=== PATIENT | female | born 1945 | race Caucasian/White ===

== ENCOUNTER 2017-03-05 20:15 | Inpatient (IN) | payer MEDICAID ==
[~2017-03-05] VITALS: Ht 152.4 cm; Wt 80.3 kg
[2017-03-05 21:10] LABS: BASOPHIL % 0.5 % (0-2); PLATELET COUNT 234 x10^3mcL (130-400); RED CELL DISTRIBUTION WIDTH 13.1 % (11.5-14.5)
[2017-03-05 21:11] LABS: CALCIUM 9.3 mg/dL (8.5-10.1); CARBON DIOXIDE 30.9 mmol/L (21-32); CHLORIDE SERUM 101 mmol/L (98-107); CREATININE SERUM 0.7 mg/dL (0.6-1.0); GLUCOSE SERUM 123 mg/dL (74-106); SODIUM SERUM 137 mmol/L (136-145)
[2017-03-05 21:15] LABS: ALBUMIN 3.7 g/dL (3.4-5.0); ALKALINE PHOSPHATASE 103 U/L (46-116); ALT/SGPT 22 U/L (14-59); AST/SGOT 17 U/L (15-37); BILIRUBIN TOTAL 0.5 mg/dL (0.20-1.00); TOTAL PROTEIN, SERUM 7.5 g/dL (6.4-8.2)
[2017-03-05 21:49] LABS: UA SPECIFIC GRAVITY <=1.005 (1.005-1.035); microscopic required? YES; urine erythrocyte TRACE (NEGATIVE)
[2017-03-05] MEDS ORDERED: MAPAP500 M2 PO (22:47)
[2017-03-05] MEDS ORDERED: MAPAP EXTRA ST500 M1 PO (22:49)
[2017-03-05] MEDS ORDERED: IBUPROFEN400 MG PO (22:50)
[2017-03-05 22:52] VITALS: Ht 152.4 cm; Wt 80.3 kg
[2017-03-05 23:25] LABS: CHOLESTEROL/HDL RATIO 2.7; MAGNESIUM 1.7 mg/dL (1.8-2.4); PHOSPHOROUS 2.9 mg/dL (2.5-4.9)
[2017-03-05 23:45] LABS: FREE T4 1.04 ng/dL (0.76-1.46); T4(THYROXINE) 9.1 ug/dL (4.7-13.3)
[2017-03-05 23:55] VITALS: BP 123/60
[2017-03-06 00:07] LABS: T3 TOTAL 0.99 ng/mL
[2017-03-06 00:27] VITALS: BP 123/60
[2017-03-06 07:17] VITALS: BP 121/61
[2017-03-06 07:21] LABS: BASOPHIL % 0.3 % (0-2); PLATELET COUNT 220 x10^3mcL (130-400); RED CELL DISTRIBUTION WIDTH 13.1 % (11.5-14.5)
[2017-03-06 07:32] LABS: CALCIUM 8.8 mg/dL (8.5-10.1); CARBON DIOXIDE 26.6 mmol/L (21-32); CHLORIDE SERUM 105 mmol/L (98-107); CREATININE SERUM 0.7 mg/dL (0.6-1.0); GLUCOSE SERUM 114 mg/dL (74-106); MAGNESIUM 2.3 mg/dL (1.8-2.4); POTASSIUM SERUM 3.8 mmol/L (3.5-5.1); SODIUM SERUM 140 mmol/L (136-145)
[2017-03-06 07:33] LABS: ALBUMIN 3.2 g/dL (3.4-5.0)
[2017-03-06 09:41] VITALS: BP 135/70
[2017-03-06 13:40] VITALS: BP 146/64
[2017-03-06 17:50] VITALS: BP 143/58
[2017-03-06 22:34] VITALS: BP 141/67
[2017-03-07 05:56] VITALS: BP 122/59
[2017-03-07 06:12] LABS: BASOPHIL % 0.5 % (0-2); PLATELET COUNT 207 x10^3mcL (130-400); RED CELL DISTRIBUTION WIDTH 13.4 % (11.5-14.5)
[2017-03-07 06:18] LABS: CALCIUM 8.5 mg/dL (8.5-10.1); CARBON DIOXIDE 25.8 mmol/L (21-32); CHLORIDE SERUM 107 mmol/L (98-107); CREATININE SERUM 0.6 mg/dL (0.6-1.0); GLUCOSE SERUM 105 mg/dL (74-106); MAGNESIUM 1.9 mg/dL (1.8-2.4); PHOSPHOROUS 3.4 mg/dL (2.5-4.9); POTASSIUM SERUM 3.4 mmol/L (3.5-5.1); SODIUM SERUM 141 mmol/L (136-145)
[2017-03-07] MEDS ORDERED: MAC100 PO (09:43)
[2017-03-07] MEDS ORDERED: LAC PO (09:45)
[2017-03-07] MEDS ORDERED: ZES10 PO (09:49)
[2017-03-07] MEDS ORDERED: LIPI20 PO (09:49)
[2017-03-07] MEDS ORDERED: ECO81 PO (09:50)
[2017-03-07] MEDS ORDERED: ESGIC CAPSULE1 EACH PO (09:51)
[2017-03-07 10:18] VITALS: BP 125/62
[2017-03-07 11:02] VITALS: BP 125/62
== END 2017-03-07 13:50 | disposition home or self-care (01) | DRG 463 ==
LOC: ED 20:15 → DU 22:46 → MU 22:46 → DU 23:49 → MU 03-06 17:53
PROVIDERS: Emergency Medicine; ADMIT Family Medicine
PROC: 7W0 Osteopathic, Anatomical Regions, Treatment (ICD-10-PCS; principal; 2017-03-06)
PROC: 7W0 Osteopathic, Anatomical Regions, Treatment (ICD-10-PCS; principal; 2017-03-06)
PROC: 7W0 Osteopathic, Anatomical Regions, Treatment (ICD-10-PCS; principal; 2017-03-06)
PROC: 7W01X1Z Osteopathic Treatment of Cervical Region using Fascial Release (ICD-10-PCS; principal; 2017-03-06)
DX: N39.0 Urinary tract infection, site not specified (principal); N17.0 Acute kidney failure with tubular necrosis; E87.6 Hypokalemia; E83.42 Hypomagnesemia; R25.2 Cramp and spasm; G93.9 Disorder of brain, unspecified; G44.201 Tension-type headache, unspecified, intractable; R31.9 Hematuria, unspecified; M99.01 Segmental and somatic dysfunction of cervical region; M99.02 Segmental and somatic dysfunction of thoracic region; M99.00 Segmental and somatic dysfunction of head region; I10 Essential (primary) hypertension; R73.03 Prediabetes; Z79.1 Long term (current) use of non-steroidal anti-inflammatories (NSAID)
CPT/HCPCS: 82962; 83880; 84439; C9113; J0696; J1956; J2270; J2800; J3475; J7030; Q0092

== ENCOUNTER 2017-03-10 11:25 | Emergency (ER) | payer MEDICAID ==
[~2017-03-10 11:25] MED LIST: ECO81 PO; ESGIC CAPSULE1 EACH PO; IBUPROFEN400 MG PO; LAC PO; LIPI20 PO; MAC100 PO; MAPAP EXTRA ST500 M1 PO; MAPAP500 M2 PO; ZES10 PO
[2017-03-10 12:28] LABS: BASOPHIL % 0.5 % (0-2); PLATELET COUNT 233 x10^3mcL (130-400); RED CELL DISTRIBUTION WIDTH 13.5 % (11.5-14.5)
[2017-03-10 12:40] LABS: CALCIUM 9.4 mg/dL (8.5-10.1); CARBON DIOXIDE 27.7 mmol/L (21-32); CHLORIDE SERUM 102 mmol/L (98-107); CREATININE SERUM 0.6 mg/dL (0.6-1.0); GLUCOSE SERUM 102 mg/dL (74-106); POTASSIUM SERUM 3.6 mmol/L (3.5-5.1); SODIUM SERUM 139 mmol/L (136-145)
[2017-03-10 12:45] LABS: ALBUMIN 3.8 g/dL (3.4-5.0); ALKALINE PHOSPHATASE 97 U/L (46-116); ALT/SGPT 26 U/L (14-59); AST/SGOT 20 U/L (15-37); BILIRUBIN TOTAL 0.23 mg/dL (0.20-1.00); TOTAL PROTEIN, SERUM 7.5 g/dL (6.4-8.2)
[2017-03-10 12:52] LABS: microscopic required? YES; urine erythrocyte NEGATIVE (NEGATIVE)
[2017-03-10 13:43] VITALS: BP 118/64
== END 2017-03-10 13:43 | disposition home or self-care (01) ==
LOC: ED 11:25
PROVIDERS: Emergency Medicine
DX: R51 Headache (principal); I10 Essential (primary) hypertension; E11.9 Type 2 diabetes mellitus without complications; E78.00 Pure hypercholesterolemia, unspecified
CPT/HCPCS: J1885; J2405; J7030

== ENCOUNTER 2019-07-27 11:32 | Inpatient (IN) | payer MEDICAID ==
[~2019-07-27] VITALS: Ht 154.9 cm; Wt 86.4 kg
[2019-07-27 11:34] VITALS: Ht 154.9 cm; Wt 86.4 kg
[2019-07-27 12:36] LABS: BASOPHIL % 0.3 % (0-2); PLATELET COUNT 235 x10^3mcL (130-400); RED CELL DISTRIBUTION WIDTH 14.4 % (11.5-14.5)
[2019-07-27] MEDS ORDERED: NOR10 PO (12:45)
[2019-07-27] MEDS ORDERED: GOOD SENSE OMEP20 MG PO (12:46)
[2019-07-27] MEDS ORDERED: FLA500 PO (12:47)
[2019-07-27] MEDS ORDERED: CLARITHROMYCIN500 M1 PO (12:48)
[2019-07-27 12:53] LABS: UA SPECIFIC GRAVITY >=1.030 (1.005-1.035); microscopic required? YES; urine erythrocyte TRACE (NEGATIVE)
[2019-07-27 13:29] LABS: CALCIUM 8.3 mg/dL (8.5-10.1); CARBON DIOXIDE 25.4 mmol/L (21-32); CHLORIDE SERUM 103 mmol/L (98-107); CREATININE SERUM 0.6 mg/dL (0.6-1.0); GLUCOSE SERUM 103 mg/dL (74-106); POTASSIUM SERUM 3.6 mmol/L (3.5-5.1); SODIUM SERUM 138 mmol/L (136-145)
[2019-07-27 13:35] LABS: ALBUMIN 3.3 g/dL (3.4-5.0); ALKALINE PHOSPHATASE 93 U/L (46-116); ALT/SGPT 37 U/L (14-59); AST/SGOT 30 U/L (15-37); BILIRUBIN TOTAL 0.29 mg/dL (0.20-1.00); LIPASE 183 IU/L (73-393); TOTAL PROTEIN, SERUM 7.4 g/dL (6.4-8.2)
[2019-07-27 15:23] LABS: T3 TOTAL 1.35 ng/mL
[2019-07-27 15:27] LABS: FREE T4 1.2 ng/dL (0.76-1.46); T4(THYROXINE) 9.2 ug/dL (4.7-13.3)
[2019-07-27 15:47] VITALS: BP 163/76
[2019-07-27 15:55] LABS: AMPHETAMINE QUAL UR NONE DETECTED (See below)
[2019-07-27 21:57] VITALS: BP 122/56
[2019-07-28 06:21] VITALS: BP 140/58
[2019-07-28 06:54] LABS: BASOPHIL % 0.7 % (0-2); PLATELET COUNT 251 x10^3mcL (130-400)
[2019-07-28 07:38] LABS: CALCIUM 8.6 mg/dL (8.5-10.1); CARBON DIOXIDE 25.7 mmol/L (21-32); CHLORIDE SERUM 105 mmol/L (98-107); CREATININE SERUM 0.6 mg/dL (0.6-1.0); GLUCOSE SERUM 101 mg/dL (74-106); POTASSIUM SERUM 3.3 mmol/L (3.5-5.1); SODIUM SERUM 140 mmol/L (136-145)
[2019-07-28 08:19] LABS: RED CELL DISTRIBUTION WIDTH 14.8 % (11.5-14.5)
[2019-07-28 09:55] VITALS: BP 116/53
[2019-07-28 14:03] VITALS: BP 105/50
[2019-07-28 14:05] VITALS: BP 105/50
[2019-07-28 16:30] VITALS: BP 111/45; BP 118/62
[2019-07-28 21:46] VITALS: BP 120/61
[2019-07-29 06:18] LABS: BASOPHIL % 0.3 % (0-2); CALCIUM 8.7 mg/dL (8.5-10.1); CARBON DIOXIDE 29.6 mmol/L (21-32); CHLORIDE SERUM 106 mmol/L (98-107); CREATININE SERUM 0.6 mg/dL (0.6-1.0); GLUCOSE SERUM 102 mg/dL (74-106); MAGNESIUM 2.1 mg/dL (1.8-2.4); PHOSPHOROUS 3.5 mg/dL (2.5-4.9); PLATELET COUNT 235 x10^3mcL (130-400); POTASSIUM SERUM 3.9 mmol/L (3.5-5.1); SODIUM SERUM 140 mmol/L (136-145)
[2019-07-29 07:38] LABS: RED CELL DISTRIBUTION WIDTH 14.9 % (11.5-14.5)
[2019-07-29 09:43] VITALS: BP 113/75
[2019-07-29] MEDS ORDERED: LEVOFLOXACIN500 M1 PO (13:19)
[2019-07-29 13:43] VITALS: BP 113/75
== END 2019-07-29 15:22 | disposition home or self-care (01) | DRG 243 ==
LOC: ED 11:32 → DU 14:26
PROVIDERS: Emergency Medicine; ADMIT Internal Medicine
DX: K21.9 Gastro-esophageal reflux disease without esophagitis (principal); N39.0 Urinary tract infection, site not specified; I10 Essential (primary) hypertension
CPT/HCPCS: 84439; 85378; C9113; G0378; J0696; J1644; J7030; J7050; J7060; Q0092

== ENCOUNTER 2019-08-13 17:13 | Emergency (ER) | payer MEDICAID ==
[~2019-08-13] VITALS: Ht 152.4 cm; Wt 76.7 kg
[~2019-08-13 17:13] MED LIST changes: +CLARITHROMYCIN500 M1 PO; +FLA500 PO; +GOOD SENSE OMEP20 MG PO; +LEVOFLOXACIN500 M1 PO; +NOR10 PO
[2019-08-13 17:14] VITALS: Ht 152.4 cm; Wt 76.7 kg
[2019-08-13 17:44] LABS: BASOPHIL % 0.6 % (0-2); PLATELET COUNT 258 x10^3mcL (130-400)
[2019-08-13 17:52] LABS: CALCIUM 9.2 mg/dL (8.5-10.1); CARBON DIOXIDE 30.9 mmol/L (21-32); CHLORIDE SERUM 101 mmol/L (98-107); CREATININE SERUM 0.7 mg/dL (0.6-1.0); GLUCOSE SERUM 95 mg/dL (74-106); POTASSIUM SERUM 3.4 mmol/L (3.5-5.1); SODIUM SERUM 139 mmol/L (136-145)
[2019-08-13 17:59] LABS: ALBUMIN 3.6 g/dL (3.4-5.0); ALKALINE PHOSPHATASE 93 U/L (46-116); ALT/SGPT 22 U/L (14-59); AST/SGOT 14 U/L (15-37); BILIRUBIN TOTAL 0.2 mg/dL (0.20-1.00); TOTAL PROTEIN, SERUM 7.7 g/dL (6.4-8.2)
[2019-08-13 19:36] VITALS: BP 128/61
== END 2019-08-13 19:36 | disposition home or self-care (01) ==
LOC: ED 17:13
DX: R42 Dizziness and giddiness (principal); I10 Essential (primary) hypertension
CPT/HCPCS: 36415; A4570

== ENCOUNTER 2019-09-08 12:05 | Emergency (ER) | payer MEDICAID ==
[~2019-09-08] VITALS: Ht 152.4 cm; Wt 76.4 kg
[2019-09-08 12:15] VITALS: Ht 152.4 cm; Wt 76.4 kg
[2019-09-08 13:00] LABS: BASOPHIL % 0.4 % (0-2); PLATELET COUNT 264 x10^3mcL (130-400); RED CELL DISTRIBUTION WIDTH 13.9 % (11.5-14.5)
[2019-09-08 13:08] LABS: CARBON DIOXIDE 30.2 mmol/L (21-32); CHLORIDE SERUM 102 mmol/L (98-107); CREATININE SERUM 0.6 mg/dL (0.6-1.0); GLUCOSE SERUM 96 mg/dL (74-106); POTASSIUM SERUM 3.6 mmol/L (3.5-5.1); SODIUM SERUM 142 mmol/L (136-145)
[2019-09-08 13:12] LABS: ALBUMIN 3.7 g/dL (3.4-5.0); ALKALINE PHOSPHATASE 116 U/L (46-116); ALT/SGPT 23 U/L (14-59); AST/SGOT 15 U/L (15-37); BILIRUBIN DIRECT 0.08 mg/dL (0.0-0.2); BILIRUBIN TOTAL 0.4 mg/dL (0.20-1.00); LIPASE 142 IU/L (73-393); TOTAL PROTEIN, SERUM 8.1 g/dL (6.4-8.2)
[2019-09-08 14:28] VITALS: BP 140/71
== END 2019-09-08 14:28 | disposition home or self-care (01) ==
LOC: ED 12:05
PROVIDERS: Student in an Organized Health Care Education/Training Program
DX: M54.5 Low back pain (principal); R60.0 Localized edema; I10 Essential (primary) hypertension
CPT/HCPCS: 36415; 83880

== ENCOUNTER 2019-10-15 21:47 | Inpatient (IN) | payer MEDICAID ==
[~2019-10-15] VITALS: Ht 152.4 cm; Wt 73.9 kg
[2019-10-15 21:51] VITALS: Ht 152.4 cm; Wt 73.9 kg
[2019-10-15 23:06] LABS: PLATELET COUNT 312 x10^3mcL (130-400); RED CELL DISTRIBUTION WIDTH 13.4 % (11.5-14.5)
[2019-10-15 23:09] LABS: BASOPHIL % 0 % (0-2)
[2019-10-15 23:15] LABS: ALBUMIN 3.5 g/dL (3.4-5.0); ALKALINE PHOSPHATASE 101 U/L (46-116); ALT/SGPT 42 U/L (14-59); AST/SGOT 25 U/L (15-37); BILIRUBIN TOTAL 0.21 mg/dL (0.20-1.00); CALCIUM 9.1 mg/dL (8.5-10.1); CARBON DIOXIDE 21.4 mmol/L (21-32); CHLORIDE SERUM 102 mmol/L (98-107); CREATININE SERUM 1.2 mg/dL (0.6-1.0); GLUCOSE SERUM 213 mg/dL (74-106); SODIUM SERUM 140 mmol/L (136-145); TOTAL PROTEIN, SERUM 7.8 g/dL (6.4-8.2)
[2019-10-15 23:19] LABS: POTASSIUM SERUM 2.7 mmol/L (3.5-5.1)
--- NOTE | 2019-10-15 23:33 | NUR ---
DR. TRIPP MADE AWARE OF LACTIC RESULT.
--- NOTE | 2019-10-15 23:55 | NUR ---
PT PRESENTS TO ED WITH C/C OF FLU LIKE SYMPTOMS X3 WEEKS. PER PT'S DAUGHTER, PT WAS DIAGNOSED WITH BRONCHITIS APPROX 3 WEEKS AGO, HAS COMPLETED HER MEDICATIONS AND HAS EXPERIENCED NO RELIEF. PT REPORTS PRODUCTIVE COUGH WITH WHITE PHLEGM AND INTERMITTENT FEVERS. PT HAS GEN WEAKNESS BUT DENIES ANY OTHER SYMPTOMS. PT ALSO REPORTS NECK PAIN AND DRY MOUTH. PT IS AWAKE, AAOX4, SPEAKING IN FULL CLEAR SENTENCES, NAD NOTED. AWAITING MSE. DAUGHTER AT BEDSIDE.
[2019-10-16] VITALS (7 sets, daily range): BP systolic 111–139; BP diastolic 51–65
[2019-10-16] MEDS ORDERED: PANTOPRAZOLE SO40 M1 PO (00:36)
--- NOTE | 2019-10-16 00:46 | NUR ---
PT REPORTS SHE DOES NOT WANT TO BE STRAIGHT CATH'D. DR. VERA MADE AWARE, OKAY TO COLLECT URINE FROM BEDPAN.
--- NOTE | 2019-10-16 01:11 | NUR ---
VIBROMYCIN NOT AVAILABLE IN ED PYXIS. PER PHARMACIST, SHE WILL BRING IT OVER WHEN SHE FINDS IT.
[2019-10-16 01:19] LABS: UA SPECIFIC GRAVITY 1.015 (1.005-1.035); microscopic required? YES; urine erythrocyte TRACE (NEGATIVE)
--- NOTE | 2019-10-16 01:34 | NUR ---
PT IS RESTING IN GURNEY AWAKE, STATES, "I FEEL BETTER NOW." DAUGHTER AT BEDSIDE. PT MEDICATED PER MD ORDERS. PT VERBALIZED UNDERSTANDING OF MEDICATIONS PRIOR TO ADMINISTRATION.
--- NOTE | 2019-10-16 02:06 | NUR ---
RECEIVED PT FROM ED VIA BED ACCOMPANIED BY NURSE AND DAUGHTER. PT ADMITTED FOR SEPSIS AND PNA. PT AAOX4, ABLE TO FOLLOW COMMANDS AND MAKE NEEDS KNOWN. ON TELE#[address] AT 102. DENIES CP/PRESSURE AT THIS TIME. PALPABLE PULSES TO ALL EXTREMETIES. NO EDEMA NOTED. LUNG LUNG SOUNDS CTA. BREATHING EVEN AND UNLABORED ON RA. NO ACUTE DISTRESS NOTED. ABD SOFT AND NONDISTENDED. ACTIVE BS X4 QUAD. DENIES N/V. STATES HAVING LOOSE STOOLS TODAY. VOIDS FREELY, BRP. GENERALIZED WEAKNESS. AMB WITH ASSIST. IV TO RAC AND LAC PATENT AND INTACT. SITES WNL. PT C/O 01/17 HEADACHE PAIN. WILL MEDICATE ACCORDINGLY. ORIENTED PT TO ROOM, CALL LIGHT WITHINF REACH. WILL CONT TO MONITOR.
[2019-10-16 02:08] LABS: MAGNESIUM 1.9 mg/dL (1.8-2.4); PHOSPHOROUS 1.9 mg/dL (2.5-4.9)
--- NOTE | 2019-10-16 02:20 | NUR ---
PT MEDICATED WITH PRN TYLENOL PER DEC FOR 4/10 HEADACHE. NO ACUTE DISTRESS NOTED. WILL CONT TO MONITOR.
--- NOTE | 2019-10-16 03:05 | NUR ---
PT LACTIC ACID OF 5.[address] CA. NO NEW ORDERS RECEIVED. WILL CONT TO MONITOR.
[2019-10-16 04:18] LABS: AMPHETAMINE QUAL UR NONE DETECTED (See below)
--- NOTE | 2019-10-16 04:30 | NUR ---
PT C/O NAUSEA AND BACK AND HEAD PAIN 03/19. MEDICATED WITH PRN NORCO AND ZOFRAN PER DEC. NO ACUTE DISTRESS NOTED. WILL CONT TO MONITOR.
[2019-10-16 07:16] LABS: BASOPHIL % 0.2 % (0-2); PLATELET COUNT 262 x10^3mcL (130-400); RED CELL DISTRIBUTION WIDTH 13.6 % (11.5-14.5)
--- NOTE | 2019-10-16 07:20 | NUR ---
PT STAYED AWAKE ALL NIGHT, BREATHING EVEN AND UNLABORED ON RA. PT CONT TO C/O BACK PAIN, STATES PAIN IS TOLERABLE AT THIS TIME. NS BOLUS GIVEN AND FINISHED AT THIS TIME. PT C/O HEART BURN MEDICATED WITH OMEPRAZOLE PER DEC. DROPLET PRECAUTIONS INITIATED PER ORDER, PT AND FAMILY EDUCATED ABOUT ISOLATION, PT AND DAUGHTER STATED UNDERSTANDING. ALL NEEDS ASSESSED AND ATTENDED TO. NO ACUTE DISTRESS NOTED. BED AT LOWEST SETTING. SIDE RAILS X2 UP. CALL LIGHT WITHING REACH. ENDORSE CARE TO BRAD PAULA RN.
[2019-10-16 07:37] LABS: CALCIUM 8.6 mg/dL (8.5-10.1); CARBON DIOXIDE 24.4 mmol/L (21-32); CHLORIDE SERUM 107 mmol/L (98-107); CHOLESTEROL 166 mg/dL (<200); CREATININE SERUM 0.7 mg/dL (0.6-1.0); GLUCOSE SERUM 137 mg/dL (74-106); MAGNESIUM 2.3 mg/dL (1.8-2.4); PHOSPHOROUS 2.2 mg/dL (2.5-4.9); POTASSIUM SERUM 3.4 mmol/L (3.5-5.1); SODIUM SERUM 140 mmol/L (136-145); TRIGLYCERIDES 41 mg/dL (<150)
--- NOTE | 2019-10-16 07:40 | NUR ---
RECEIVED PT LYING IN BED A/A. BREATHING EQUAL/UNLABORED ON RA. NO ACUTE PAIN/ DISTRESS. IVF RUNNING AT 100ML/HR, SITE WNL. BED IN LOW POSITION, CALL LIGHT IN REACH, SAFETY PRECAUTIONS IN PLACE, DAUGHTER AT BEDSIDE. WILL CONTINUE TO MONITOR
[2019-10-16 07:53] LABS: CHOLESTEROL/HDL RATIO 2.7; HDL CHOLESTEROL 62 mg/dL (40-60)
--- NOTE | 2019-10-16 10:15 | NUR ---
Discount pharmacy card and list to low cost medical clinics given to patient by Dana.
--- NOTE | 2019-10-16 11:38 | NUR ---
PT LYING IN BED WITH EYES CLOSED, EASILY AROUSABLE. BREATHING EQUAL/UNLABORED ON RA. NO ACUTE PAIN/ DISTRESS. IVF RUNNING, SITE WNL. BED IN LOW POSITION, CALL LIGHT IN REACH, SAFETY PRECAUTIONS IN PLACE, FAMILY AT BEDSIDE. WILL CONTINUE TO MONTIOR
--- NOTE | 2019-10-16 15:16 | NUR ---
PT LYING IN BED WITH EYES CLOSED, PT EASILY AROUSABLE. BREATHING EQUAL/UNLABORED ON RA. IVF RUNNING, SITE WNL. NO ACUTE CHANGES. BED IN LOW POSITION, CALL LIGHT IN REACH, SAFETY PRECAUTIONS IN PLACE. WILL CONTINUE TO MONITOR
--- NOTE | 2019-10-16 18:36 | NUR ---
PT SITTING IN BED, A/A. BREATHING EQUAL/UNLABORED ON RA. NO ACUTE PAIN/ DISTRESS. IVF RUNNING, SITE WNL. BED IN LOW POSITION, CALL LIGHT IN REACH, SAFETY PRECAUTIONS IN PLACE. WILL ENDORSE TO NIGHT NURSE
--- NOTE | 2019-10-16 19:20 | NUR ---
RECEIVED REPORT FROM DAY SHIFT NURSE, BRAD CORLEY. PT IS AAOX4. SPEECH IS CLEAR. C/O [place] WILL MEDICATE PER MAR ORDER. ALSO C/O DRY EYES, WILL LET AWARE. SINHALA SPEAKING. ON TELE #[address] 76[address] DENIES CHEST PAIN/CHEST PRESSURE. PULSES ARE PALPABLE. TRACE EDEMA NOTED TO BLE. BREATHING IS EVEN AND UNLABORED ON RA. LUNG SOUNDS CTA. DENIES SOB. PRODUCTIVE COUGH WITH WHITE SPUTUM. ABD IS SOFT AND NONDISTENDED. DENIES N/V/D. VOIDS FREELY. DENIES DYSURIA. GENERALIZED WEAKNESS. AMBULATORY WITH ASSIT. SKIN INTACT. IV SITES DRY AND INTACT. NO ERYTHEMA NOTED. BED IN LOWEST POSITION. CALL LIGHT WITHIN REACH. FAMILY AT BEDSIDE. WILL CONTINUE TO MONITOR.
--- NOTE | 2019-10-16 21:36 | NUR ---
ROUTINE MEDICATIONS WERE GIVEN AND TOLERATED WELL. NO ACUTE DISTRESS NOTED. PT REQUESTED SLEEPING PILL, ADMINISTERED. BREATHING IS EVEN AND UNLABORED ON RA. NO SIGNS OF RESP. DISTRESS. DENIES ANY PAIN AT THIS TIME. DAUGHTER AT BEDSIDE. BED IN LOWEST POSITION. CALL LIGHT WITHIN REACH. WILL CONTINUE TO MONITOR.
--- NOTE | 2019-10-16 22:15 | NUR ---
RECEIVED PT FROM NURSE, BARNEY MORAN. PT LAYING DOWN IN BED WITH EYES CLOSED, EASILY AROUSABLE. DAUGHTER IS AT BEDSIDE. NO ACUTE DISTRESS NOTED. IV TO LAC INFUSING NS AT 100ML/HR. SITE WNL. PT ON DROPLET PRECAUTIONS. BED AT LOWEST SETTING. SIDE RAILS X2 UP. CALL LIGHT WITHING REACH. WILL CONT TO MONITOR.
--- NOTE | 2019-10-17 01:03 | NUR ---
PT LAYING DOWN IN BED WITH EYES CLOSED, BREATHING EVEN AND UNLABORED ON RA. NO ACUTE DISTRESS NOTED. DAUGHTER AT BEDSIDE. NS INFUSING TO LAC AT 100ML/HR. BED AT LOWEST SETTING. SIDE RAILS X2 UP. CALL LIGHT WITHING REACH. WILL CONT TO MONITOR.
--- NOTE | 2019-10-17 04:45 | NUR ---
PT C/O HEART BURN, MEDICATED WITH PRN PEPCID PER DEC. NO ACUTE DISTRESS NOTED. WILL CONT TO MONITOR.
--- NOTE | 2019-10-17 05:40 | NUR ---
PT SLEPT AT INTERVALS THROUGHOUT THE NIGHT, BREATHING EVEN AND UNLABORED ON RA. NO SIGNIFICANT CHANGES DURING SHIFT. PT STATES RELIEF OF HEART BURN. ALL NEEDS ASSESSED AND ATTENED TO. IV TO LAC INFUSING NS AT 100ML/HR, SITE FREE FROM REDNESS AND SWELLING. BED AT LOWEST SETTING. SIDE RAILS X2 UP. CALL LIGHT WITHING REACH. WILL CONT TO MONITOR AND ENDORSE CARE TO AM NURSE.
[2019-10-17 06:02] VITALS: BP 143/74
[2019-10-17 06:03] VITALS: BP 143/74
--- NOTE | 2019-10-17 07:40 | NUR ---
RECEIVED PT IN BED. ASSESED AND DOCUMENTED. DENIES ANY PAIN. NO SOB NOTED. SAFTEY PRECAUTIONS ARE IN PLACE. WILL MONITOR.
[2019-10-17 08:11] LABS: PLATELET COUNT 275 x10^3mcL (130-400); RED CELL DISTRIBUTION WIDTH 13.9 % (11.5-14.5)
[2019-10-17 08:22] VITALS: BP 148/68
[2019-10-17 08:22] LABS: BASOPHIL % 0 % (0-2)
[2019-10-17] MEDS ORDERED: TAM75 PO (10:22)
[2019-10-17] MEDS ORDERED: HYDROCHLOROTH12.5 M2 PO (10:23)
[2019-10-17] MEDS ORDERED: MELATONIN3 MG PO (10:23)
--- NOTE | 2019-10-17 10:30 | NUR ---
[facility] CALLED AND INFORMED THEY CANNOT ACCEPT THE RESP CULTURE SPECIMEN SENT YESTERDAY. INFORMED , HE SAID NO NEED RESP CULTURE AGAIN. INFORMED PT ABOUT THAT, PT SAID SHE IS NOT COUGHING OUT SPUTUM ANYMORE. CHARGE NURSE AWARE.
[2019-10-17] MEDS ORDERED: MEDDP PO (10:37)
[2019-10-17 10:45] LABS: CALCIUM 8.8 mg/dL (8.5-10.1); CARBON DIOXIDE 26.6 mmol/L (21-32); CHLORIDE SERUM 106 mmol/L (98-107); CREATININE SERUM 0.4 mg/dL (0.6-1.0); GLUCOSE SERUM 110 mg/dL (74-106); MAGNESIUM 2.1 mg/dL (1.8-2.4); PHOSPHOROUS 2.6 mg/dL (2.5-4.9); POTASSIUM SERUM 3.1 mmol/L (3.5-5.1); SODIUM SERUM 139 mmol/L (136-145)
[2019-10-17 12:51] VITALS: BP 144/77
[2019-10-17 13:03] VITALS: BP 144/77
[2019-10-17] MEDS ORDERED: EYE ALLERGY REL15 ML OP (13:19)
--- NOTE | 2019-10-17 14:45 | NUR ---
DISCHARGE INSTRUCTIONS GIVEN. PRESCRIPTIONS SENT TO PT'S PHARMACY BY . PT DENIES ANY PAIN, STABLE, NO SOB NOTED. FAMILY AT BEDSIDE. DAUGHTER SIGNED DC PAPER PER PT REQUEST BECAUSE OF SHE IS HAVING MILD TREMOR IN HER HAND WHEN SHE WRITE. REMOVED IV FROM LAC AND RAC AND DRESSINGS APPLIED. CHIEF OF HOSPITAL MEDICINE WHEELED PT DOWN TO LOBBY ACCOMPANIED WITH DAUGHTER. FAMILY SPOKE WITH . PT DC HOME. TELE REMOVED AND RETURNED.
--- NOTE | 2019-10-22 08:40 | NUR ---
ECHOCARIDOGRAM NOT DONE PT DISCHARGED.
== END 2019-10-17 15:03 | disposition home or self-care (01) | DRG 113 ==
LOC: ED 21:47 → DU 10-16 00:26
PROVIDERS: Emergency Medicine; Family Medicine; ADMIT Internal Medicine
DX: J10.1 Influenza due to other identified influenza virus with other respiratory manifestations (principal); N17.0 Acute kidney failure with tubular necrosis; E83.39 Other disorders of phosphorus metabolism; E87.6 Hypokalemia; K29.70 Gastritis, unspecified, without bleeding; E78.5 Hyperlipidemia, unspecified; I10 Essential (primary) hypertension; Z68.31 Body mass index [BMI] 31.0-31.9, adult
CPT/HCPCS: 36600; 83880; 87804; 97116-GP; 97530-GP; G0378; J0696; J1720; J2405; J3475; J3480; J3490; J7030; J7040; J7050; J7060; J7620; Q9967

== ENCOUNTER 2020-08-16 14:40 | Emergency (ER) | payer MEDICAID ==
[~2020-08-16 14:40] MED LIST changes: +EYE ALLERGY REL15 ML OP; +HYDROCHLOROTH12.5 M2 PO; +MEDDP PO; +MELATONIN3 MG PO; +PANTOPRAZOLE SO40 M1 PO; +TAM75 PO
[2020-08-16 16:03] LABS: BASOPHIL % 0.5 % (0-2); PLATELET COUNT 265 x10^3mcL (130-400); RED CELL DISTRIBUTION WIDTH 13.9 % (11.5-14.5)
[2020-08-16 16:35] LABS: CARBON DIOXIDE 30.6 mmol/L (21-32); CHLORIDE SERUM 101 mmol/L (98-107); CREATININE SERUM 0.7 mg/dL (0.6-1.0); GLUCOSE SERUM 119 mg/dL (74-106); POTASSIUM SERUM 3.4 mmol/L (3.5-5.1); SODIUM SERUM 137 mmol/L (136-145)
[2020-08-16 18:14] VITALS: BP 142/65
== END 2020-08-16 18:14 | disposition home or self-care (01) ==
LOC: ED 14:40
PROVIDERS: Emergency Medicine
DX: M25.512 Pain in left shoulder (principal); M79.672 Pain in left foot; I10 Essential (primary) hypertension; M81.0 Age-related osteoporosis without current pathological fracture
CPT/HCPCS: Q0092

== ENCOUNTER 2020-10-09 13:30 | Emergency (ER) | payer MEDICAID, SELFPAY ==
[~2020-10-09] VITALS: Ht 160 cm; Wt 74.8 kg
[2020-10-09 13:34] VITALS: Ht 160 cm; Wt 74.8 kg
[2020-10-09 16:33] LABS: BASOPHIL % 0.1 % (0.2-1.3); PLATELET COUNT 254 x10^3mcL (179-408); RED CELL DISTRIBUTION WIDTH 13.5 % (12.3-17.7)
[2020-10-09 16:48] LABS: ALBUMIN 3.9 g/dL (3.4-5.0); ALKALINE PHOSPHATASE 80 U/L (46-116); ALT/SGPT 28 U/L (14-59); AST/SGOT 27 U/L (15-37); BILIRUBIN TOTAL 0.48 mg/dL (0.20-1.00); CALCIUM 9.6 mg/dL (8.5-10.1); CARBON DIOXIDE 28.2 mmol/L (21-32); CHLORIDE SERUM 89 mmol/L (98-107); CREATININE SERUM 0.7 mg/dL (0.6-1.0); GLUCOSE SERUM 111 mg/dL (74-106); LIPASE 129 IU/L (73-393); SODIUM SERUM 127 mmol/L (136-145); TOTAL PROTEIN, SERUM 8.1 g/dL (6.4-8.2)
[2020-10-09 16:51] LABS: POTASSIUM SERUM 2.6 mmol/L (3.5-5.1)
[2020-10-09 16:57] LABS: microscopic required? NO
[2020-10-09 17:29] LABS: urine erythrocyte NEGATIVE (NEGATIVE)
[2020-10-09 23:42] VITALS: BP 146/71
== END 2020-10-11 00:20 | disposition home or self-care (01) ==
LOC: ED 13:30
PROVIDERS: Emergency Medicine
DX: U07.1 COVID-19 (principal); K44.9 Diaphragmatic hernia without obstruction or gangrene; E87.6 Hypokalemia; R10.816 Epigastric abdominal tenderness; I10 Essential (primary) hypertension; M19.90 Unspecified osteoarthritis, unspecified site; Z88.8 Allergy status to other drugs, medicaments and biological substances
CPT/HCPCS: Q0162

== ENCOUNTER 2020-10-12 23:59 | Emergency (ER) | payer MEDICAID ==
[~2020-10-12] VITALS: Ht 157.5 cm; Wt 75.7 kg
[2020-10-13 00:03] VITALS: Ht 157.5 cm; Wt 75.7 kg
[2020-10-13 02:20] LABS: BASOPHIL % 0.5 % (0.2-1.3); PLATELET COUNT 293 x10^3mcL (179-408); RED CELL DISTRIBUTION WIDTH 13.9 % (12.3-17.7)
[2020-10-13 02:26] LABS: CALCIUM 8.9 mg/dL (8.5-10.1); CARBON DIOXIDE 25.3 mmol/L (21-32); CHLORIDE SERUM 98 mmol/L (98-107); CREATININE SERUM 0.6 mg/dL (0.6-1.0); GLUCOSE SERUM 100 mg/dL (74-106); SODIUM SERUM 134 mmol/L (136-145)
[2020-10-13 02:34] LABS: ALBUMIN 3.5 g/dL (3.4-5.0); ALKALINE PHOSPHATASE 74 U/L (46-116); ALT/SGPT 27 U/L (14-59); AST/SGOT 26 U/L (15-37); BILIRUBIN TOTAL 0.66 mg/dL (0.20-1.00); TOTAL PROTEIN, SERUM 7.8 g/dL (6.4-8.2)
[2020-10-13 02:35] LABS: POTASSIUM SERUM 3.4 mmol/L (3.5-5.1)
[2020-10-13 04:23] LABS: microscopic required? NO
[2020-10-13 05:13] LABS: urine erythrocyte NEGATIVE (NEGATIVE)
[2020-10-13 06:34] VITALS: BP 164/89
== END 2020-10-13 06:34 | disposition home or self-care (01) ==
LOC: ED 23:59
PROVIDERS: Emergency Medicine
DX: K29.70 Gastritis, unspecified, without bleeding (principal); U07.1 COVID-19; E87.6 Hypokalemia; E87.1 Hypo-osmolality and hyponatremia; I10 Essential (primary) hypertension; M19.90 Unspecified osteoarthritis, unspecified site; Z88.8 Allergy status to other drugs, medicaments and biological substances
CPT/HCPCS: J1200; J1885; J2765